=== PATIENT | male | born 1960 | race African-American/Black ===

== ENCOUNTER 2020-11-11 09:27 | Emergency (ER) | payer BC ==
[2020-11-11 09:33] VITALS: BMI 30.8
[2020-11-11] MEDS ORDERED: FAMOTIDINE 20 MG TABLET PO ONE (09:36)
[2020-11-11] MEDS ORDERED: diphenhydrAMINE HCL 25 MG CAPSULE (FP) PO ONE (09:36)
[2020-11-11] MEDS ORDERED: methylPREDNISolone NA SUCC 125 MG/2 ML VIAL IVPUSH ONE (09:37)
[2020-11-11] MEDS ORDERED: FAMOTIDINE 20 MG/50 ML IVPB 20 MG/50 ML MG IVPB ONE ×2 (09:41→09:45)
[2020-11-11] MEDS ORDERED: methylPREDNISolone NA SUCC 125 MG/2 ML VIAL ONE (09:41)
[2020-11-11] MEDS ORDERED: FAMOTIDINE 20 MG/50 ML IVPB 20 MG/50 ML MG IVPB SCH ×3 (10:00)
[2020-11-11 13:01] VITALS: BP 145/83; PULSE 79; TEMP 97.9
== END 2020-11-11 13:02 | disposition home or self-care (01) ==
LOC: JER 09:27
PROC: 3E033GC Introduction of Other Therapeutic Substance into Peripheral Vein, Percutaneous Approach (ICD-10-PCS; principal; 2020-11-11)
PROC: 3E033GC Introduction of Other Therapeutic Substance into Peripheral Vein, Percutaneous Approach (ICD-10-PCS; 2020-11-11)
PROC: 3E033GC Introduction of Other Therapeutic Substance into Peripheral Vein, Percutaneous Approach (ICD-10-PCS; 2020-11-11)
DX: T78.40XA Allergy, unspecified, initial encounter (principal)
CPT/HCPCS: 99284-25